=== PATIENT | male | born 1985 | race Caucasian/White ===

== ENCOUNTER 2017-10-17 13:29 | Emergency (ER) | payer BC, OTHER ==
[~2017-10-17] VITALS: Ht 190.5 cm; Wt 139.3 kg
[2017-10-17] MEDS ORDERED: CLINDAMYCIN PHOS 600 MG/ 4 ML VIAL IM ONE (14:15)
[2017-10-17] MEDS ORDERED: HYDROCODONE/APAP 10MG-325MG TAB PO ONE (14:15)
[2017-10-17 15:35] VITALS: BP 142/96
== END 2017-10-17 16:18 | disposition home or self-care (01) ==
LOC: ER 13:29
DX: K02.9 Dental caries, unspecified (principal); K04.7 Periapical abscess without sinus
CPT/HCPCS: 99283